=== PATIENT | male | born 1970 | race Caucasian/White ===

== ENCOUNTER → 2017-05-25 | Outpatient (CLI) | payer BC | END | disposition home or self-care (01) | LOC: GMAL 11:13 | PROVIDERS: ATTEND Family Medicine | DX: Z00.00 Encounter for general adult medical examination without abnormal findings (principal) ==

== ENCOUNTER → 2017-09-16 | Outpatient (CLI) | payer BC | END | disposition home or self-care (01) | LOC: GMAL 10:24 | PROVIDERS: ATTEND Family Medicine | DX: E55.9 Vitamin D deficiency, unspecified (principal) ==

== ENCOUNTER → 2018-12-20 | Outpatient (CLI) | payer BC | LOC: GMAL 10:44 | PROVIDERS: ATTEND Family Medicine | DX: D72.829 Elevated white blood cell count, unspecified (principal); C95.12 Chronic leukemia of unspecified cell type, in relapse; D51.3 Other dietary vitamin B12 deficiency anemia; E55.9 Vitamin D deficiency, unspecified ==

== ENCOUNTER → 2019-02-08 | Outpatient (CLI) | payer BC ==
--- NOTE | 2019-02-09 13:49 | RAD ---
Study: Frontal and oblique views of the ribs. Indication: OTHER CHEST PAIN Comparison: None. Impression: Mild cardiomegaly. No pneumothorax identified. No displaced rib fracture identified. Electronically signed by: Ean Olivera MD 02/09/2019 1:45 PM CDT
== END ==
LOC: RAD 16:28
PROVIDERS: ATTEND Nurse Practitioner Family
DX: I51.7 Cardiomegaly (principal)

== ENCOUNTER → 2019-06-19 | Outpatient (CLI) | payer BC | LOC: LAB.O 10:57 | PROVIDERS: ATTEND Family Medicine | DX: E53.8 Deficiency of other specified B group vitamins (principal); M10.9 Gout, unspecified; D45 Polycythemia vera ==